=== PATIENT | male | born 1960 | race Caucasian/White ===

== ENCOUNTER → 2019-03-05 12:24 | Outpatient (BNVA) | payer OTHER, SELFPAY | PROVIDERS: Family Provider Internal Medicine; PCP Internal Medicine; Visit Provider Urology | DX: N40.1 Benign prostatic hyperplasia with lower urinary tract symptoms (principal); N13.8 Other obstructive and reflux uropathy; R97.20 Elevated prostate specific antigen [PSA] | CPT/HCPCS: 36415; 81001; 84153 ==

== ENCOUNTER → 2019-09-03 15:41 | Outpatient (BNVA) | payer OTHER, SELFPAY | PROVIDERS: Family Provider Internal Medicine; PCP Internal Medicine; Visit Provider Urology | DX: N13.8 Other obstructive and reflux uropathy (principal); N40.1 Benign prostatic hyperplasia with lower urinary tract symptoms; R97.20 Elevated prostate specific antigen [PSA]; R31.0 Gross hematuria | CPT/HCPCS: 81001; 84153 ==

== ENCOUNTER → 2019-10-09 15:49 | Outpatient (BNVA) | payer OTHER, SELFPAY | PROVIDERS: Family Provider Internal Medicine; PCP Internal Medicine; Visit Provider Urology | DX: R97.20 Elevated prostate specific antigen [PSA] (principal); N20.1 Calculus of ureter; N40.1 Benign prostatic hyperplasia with lower urinary tract symptoms; N13.8 Other obstructive and reflux uropathy | CPT/HCPCS: 81001 ==

== ENCOUNTER → 2019-12-31 08:42 | Outpatient (BNVA) | payer OTHER, SELFPAY | PROVIDERS: Family Provider Internal Medicine; PCP Internal Medicine; Visit Provider Urology | DX: R97.20 Elevated prostate specific antigen [PSA] (principal) | CPT/HCPCS: 84153 ==

== ENCOUNTER → 2020-01-07 16:07 | Outpatient (BNVA) | payer OTHER, SELFPAY | PROVIDERS: Family Provider Internal Medicine; PCP Internal Medicine; Visit Provider Urology | DX: N13.8 Other obstructive and reflux uropathy (principal); N40.1 Benign prostatic hyperplasia with lower urinary tract symptoms; R97.20 Elevated prostate specific antigen [PSA] | CPT/HCPCS: 36415; 81003; 84153 ==

== ENCOUNTER → 2020-04-27 10:12 | Outpatient (BNVA) | payer OTHER, SELFPAY | PROVIDERS: Family Provider Internal Medicine; PCP Internal Medicine; Visit Provider Urology | DX: R97.20 Elevated prostate specific antigen [PSA] (principal); N39.9 Disorder of urinary system, unspecified | CPT/HCPCS: 84153 ==

== ENCOUNTER → 2020-05-05 15:24 | Outpatient (BNVA) | payer OTHER, SELFPAY | PROVIDERS: Family Provider Internal Medicine; PCP Internal Medicine; Visit Provider Urology | DX: N13.8 Other obstructive and reflux uropathy (principal); N40.1 Benign prostatic hyperplasia with lower urinary tract symptoms; R97.20 Elevated prostate specific antigen [PSA]; N20.1 Calculus of ureter; R31.0 Gross hematuria | CPT/HCPCS: 81003 ==

== ENCOUNTER → 2020-11-05 12:13 | Outpatient (BNVA) | payer OTHER, SELFPAY | PROVIDERS: Family Provider Internal Medicine; PCP Internal Medicine; Visit Provider Nurse Practitioner Family | DX: R97.20 Elevated prostate specific antigen [PSA] (principal); N39.9 Disorder of urinary system, unspecified | CPT/HCPCS: 84153 ==

== ENCOUNTER → 2020-11-10 15:44 | Outpatient (BNVA) | payer OTHER, SELFPAY | PROVIDERS: Family Provider Internal Medicine; PCP Internal Medicine; Visit Provider Urology | DX: N40.1 Benign prostatic hyperplasia with lower urinary tract symptoms (principal); N13.8 Other obstructive and reflux uropathy; R97.20 Elevated prostate specific antigen [PSA]; F17.210 Nicotine dependence, cigarettes, uncomplicated | CPT/HCPCS: 81003 ==

== ENCOUNTER 2020-11-17 16:42 | Emergency (ER) | payer OTHER, SELFPAY ==
--- NOTE | 2020-11-17 17:16 | XRR_ITS ---
PROCEDURE INFORMATION: Exam: XR Right Finger(s) Exam date and time: 11/17/2020 5:16 PM Age: 60 years old Clinical indication: Injury or trauma; Other: Dropped metal on thumb; Finger; Injury date: 11/17/2020; Injury details: Dropped metal on right thumb; Patient HX: Laceration right thumb; Additional info: Pain TECHNIQUE: Imaging protocol: XR Right fingers. Views: Minimum 2 views. Total images: 2 COMPARISON: No relevant prior studies available. FINDINGS: Bones/joints: Nondisplaced transverse fracture terminal phalanx right thumb. 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 Soft tissues: Soft tissue swelling right thumb. XR/XR finger RT min 2V [id number] IMPRESSION: Nondisplaced transverse fracture terminal phalanx right thumb.
[2020-11-17 17:40] VITALS: BP 132/74; PULSE 109; RESP 97; TEMP 36.7; O2SAT 98; BMI 21.9
--- NOTE | 2020-11-17 19:29 | ED_ITS ---
HPI - Wound/Laceration General: Chief Complaint: Wound/Laceration Stated Complaint: Injury to R Thumb Time Seen by Provider: 11/17/20 19:29 History of Present Illness: HPI narrative: 60-year-old gentleman comes in today with complaints of right thumb injury. Patient was working on his brush mower and the blade slipped off causing it to smash his right thumb. Patient has a irregular laceration with some mild swelling to the distal thumb. Sensation is intact distally. Tendon function is normal. Review of Systems General: Reports: 10 or more systems reviewed and unremarkable except in HPI and below Musc: Reports: other (Right thumb injury) [facility] ED PFSH: Medical History (Updated 11/17/20 @ 20:13 by RENEA Cha) BPH with obstruction/lower urinary tract symptoms Elevated PSA Gross hematuria Surgical History H/O foot surgery Family History Mother , 83 Dementia Diabetes Cancer Father , 58 Cancer Social History Smoking and tobacco status: current every day smoker Alcohol intake: former Marital status: Current occupational status: employed History of recent travel: No Physical Exam Const: COMMON NORMALS: no acute distress and patient oriented x3 GENERAL APPEARANCE: cooperative HENMT: COMMON NORMALS: normocephalic and Normal external nose present HEAD & SCALP: normal to inspection and normocephalic NOSE: Normal external nose present Eye: GENERAL EYE: appearance normal, both eyes and all related structures Neck/C-Spine: COMMON NORMALS: full ROM Chest: COMMONS NORMALS: normal inspection of the chest Resp: COMMON NORMALS: normal respiratory effort EFFORT & INSPECTION: Yes able to speak in complete sentences Cardio: COMMON NORMALS: regular rate and regular rhythm RATE: regular rate RHYTHM: regular rhythm GI: COMMON NORMALS: non-tender Extremity: NARRATIVE EXTREMITY EXAM: Irregular 4 cm laceration to the distal right thumb. No nail damage. Tendon functions normal. Cap refill is normal. Neuro: COMMON NORMALS: patient oriented x3 and moves all extremities Psych: COMMON NORMALS: mental status grossly normal and cooperative Skin: COMMON NORMALS: no rashes or lesions noted GENERAL SKIN EXAM: no rashes or lesions noted Procedures Laceration Laceration 1: Site: hand Side (If applicable): right Size (cm): 4 Description: irregular Depth: simple, single layer Local Anesthetic: lidocaine 1% and with epi Amount of anesthesia used (mL): 4 Skin layer closed with: nylon Size (cm): 4-0 Number of sutures: 10 Technique: simple, interrupted Course Vital Signs: Vital signs: Vital Signs Temperature 98.1 F 11/17/20 17:40 Pulse Rate 109 H 11/17/20 17:40 Respiratory Rate 97 H 11/17/20 17:40 Blood Pressure 132/74 11/17/20 17:40 Pulse Oximetry 98 11/17/20 17:40 MDM - Wound/Laceration MDM Narrative: Medical decision making narrative: Patient comes in today with complaints of injury to the right thumb. On exam we have an irregular laceration to the distal right thumb. Cap refill and tendon function is intact. Differential diagnosis includes fracture, laceration, need for tetanus prophylaxis. X-ray noted a nondisplaced fracture of the distal phalanx of the right thumb. Wound was closed with sutures. Patient was covered with antibiotics with one dose of ceftriaxone in the emergency room. Patient was written prescriptions for Augmentin and hydrocodone. Patient was recommended to follow-up with primary care in 1 week for recheck. Wound care recommendations were reviewed with patient and spouse. Patient reported understanding and agreed to plan. Discharge Plan Discharge Patient Disposition: Home Clinical Impression: Laceration of thumb Qualifiers: Encounter type: initial encounter Damage to nail status: without damage Foreign body presence: without foreign body Laterality: right Qualified Code(s): S61.011A - Laceration without foreign body of right thumb without damage to nail, initial encounter Thumb fracture Qualifiers: Encounter type: initial encounter Fracture type: open Phalanx: distal Fracture alignment: nondisplaced Laterality: right Qualified Code(s): S62.524B - Nondisplaced fracture of distal phalanx of right thumb, initial encounter for open fracture Condition: Stable Prescriptions: New Augmentin 875-125 mg tablet 1 tab PO BID Qty: 7 RF: 0 hydrocodone-acetaminophen 5-325 mg tablet 1 tab PO Q6H PRN (Reason: pain) Qty: 7 RF: 0 No Action acetaminophen [Tylenol] 325 mg capsule 325 mg PO QID PRNRF: 0 diphenhydramine-acetaminophen [Tylenol PM Extra Strength] 25-500 mg tablet 1 tab PO Q6H PRNRF: 0 omeprazole 20 mg tablet,delayed release (DR/EC) 20 mg PO DAILY RF: 0 meloxicam 15 mg tablet 15 mg PO DAILY RF: 0 finasteride 5 mg tablet 5 mg PO DAILY Qty: 90 RF: 3 tamsulosin 0.4 mg capsule 0.4 mg PO DAILY Qty: 90 RF: 3 Discharge Orders: Discharge ED (Routine); Ordered 11/17/20 Ordered By: Erick Gutierrez Referrals: Sergo Powell DO [Primary Care Provider] - Discharge Diet: Usual diet Discharge Activity: Increase activity as tolerated Patient Instructions: Suture Care (ED), Opioid Safety Activity Restrictions/Additional Instructions: Keep wound clean and dry. Avoid use of finger for at least 1 to 2 weeks. Sutures need to come out in 7 to 10 days. Take antibiotic as directed. Use acetaminophen or ibuprofen as needed for pain. Use hydrocodone for breakthrough pain. Follow-up with primary care in 1 week for recheck. Return to the ER for new concerns. Coding Level of Care Code ED Cost Accounting Analyst for Breanne Harvey
[2020-11-17] MEDS: HYDROcodone-acetaminophen 5-325 mg Tablet 1 TAB PO (20:31)
[2020-11-17] MEDS: tetanus-dipt-pertussis 0.5 mL SDV IM (20:32)
[2020-11-17] MEDS: cefTRIAXone 1,000 MG in lidocaine 1% 2.1 ML 2.1 MG IM (20:33)
== END 2020-11-17 20:46 | disposition home or self-care (01) ==
PROVIDERS: Emergency Provider Nurse Practitioner Family; PCP Internal Medicine
DX: S62.524B Nondisplaced fracture of distal phalanx of right thumb, initial encounter for open fracture (principal); S61.011A Laceration without foreign body of right thumb without damage to nail, initial encounter; F17.210 Nicotine dependence, cigarettes, uncomplicated; W20.8XXA Other cause of strike by thrown, projected or falling object, initial encounter; Z23 Encounter for immunization
CPT/HCPCS: 12002; 73140; 90471; 90715; 96372; 99283; J0696

== ENCOUNTER → 2021-05-03 09:13 | Outpatient (BNVA) | payer OTHER, SELFPAY | PROVIDERS: PCP Internal Medicine; Visit Provider Nurse Practitioner Family | DX: R97.20 Elevated prostate specific antigen [PSA] (principal); N39.9 Disorder of urinary system, unspecified | CPT/HCPCS: 84153 ==

== ENCOUNTER → 2021-05-11 16:00 | Outpatient (BNVA) | payer OTHER, SELFPAY | PROVIDERS: PCP Internal Medicine; Visit Provider Urology | DX: N40.1 Benign prostatic hyperplasia with lower urinary tract symptoms (principal); N13.8 Other obstructive and reflux uropathy; R97.20 Elevated prostate specific antigen [PSA]; F17.210 Nicotine dependence, cigarettes, uncomplicated | CPT/HCPCS: 81003 ==

== ENCOUNTER 2021-06-03 14:29 | Emergency (ER) | payer OTHER, SELFPAY ==
[2021-06-03 15:13] VITALS: BP 127/78; PULSE 78; RESP 15; TEMP 37; O2SAT 96; BMI 22.5
[2021-06-03 15:41] VITALS: BP 144/76; PULSE 72; RESP 16; O2SAT 96
--- NOTE | 2021-06-03 15:44 | XRR_ITS ---
PROCEDURE INFORMATION: Exam: XR Left Hip Exam date and time: 06/03/2021 4:03 PM Age: 60 years old Clinical indication: Injury or trauma; Fall; Blunt trauma (contusions or hematomas); Injury date: Today; Injury details: Patient is a 60-year-old male comes to the ED with left lower extremity pain after injury. Couple hours prior to arrival patient says he tripped and fell onto he backhoe. He says that his left hip and upper thigh hit the metal backhoe. ; Additional info: Fall with thigh and hip pain TECHNIQUE: Imaging protocol: XR Left hip. Views: 2 or 3 views hip with pelvis when performed. COMPARISON: [place]dom[place] o [id number] 08/30/2018 9:03 AM FINDINGS: Bones/joints: No acute fracture. 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 Soft tissues: Unremarkable. XR/XR hip LT 2-3V wo/w pel* [id number] IMPRESSION: No acute findings.
--- NOTE | 2021-06-03 15:44 | XRR_ITS ---
PROCEDURE INFORMATION: Exam: XR Left Femur Exam date and time: 06/03/2021 4:03 PM Age: 60 years old Clinical indication: Injury or trauma; Fall; Blunt trauma; Thigh or upper leg; Injury date: Today; Injury details: Patient is a 60-year-old male comes to the ED with left lower extremity pain after injury. Couple hours prior to arrival patient says he tripped and fell onto he backhoe. He says that his left hip and upper thigh hit the metal backhoe. ; Additional info: Fall injury with left upper thigh pain TECHNIQUE: Imaging protocol: XR Left femur. Views: 2 views. COMPARISON: MR prostate 09/12/2019 7:11 PM FINDINGS: Bones/joints: No acute fracture. Soft tissues: Unremarkable. XR/XR femur LT min 2V* [id number] IMPRESSION: No acute findings.
--- NOTE | 2021-06-03 15:48 | ED_ITS ---
HPI - Fall General: Chief Complaint: Fall Stated Complaint: fell Time Seen by Provider: 06/03/21 15:33 History of Present Illness: Patient is a 60-year-old male comes to the ED with left lower extremity pain after injury. Couple hours prior to arrival patient says he tripped and fell onto he backhoe. He says that his left hip and upper thigh hit the metal backhoe. Denies any head trauma or loss of consciousness. Patient is able to ambulate on left leg but does endorse some soreness. He rates his pain as mild and says it is a 2 out of 10. He can feel swollen tender spot on the left lateral upper thigh/hip region. Associated symptoms-after fall: Denies abdominal pain, chest pain, headache(s), hematuria or neck pain Review of Systems Const: Denies: fever(s), chills or fatigue Eyes: Denies: change in vision or eye discomfort ENMT: Denies: throat pain, odynophagia, nasal discharge or nasal congestion Card: Denies: chest pain, palpitations, edema, swelling of feet/ankles, dyspnea on exertion or orthopnea Resp: Denies: dyspnea, productive cough or non-productive cough GI: Denies: abdominal pain, nausea, vomiting, diarrhea, constipation or hematochezia : Denies: flank pain, difficulty urinating, dysuria or hematuria Musc: Reports: extremity pain (Left upper thigh and left hip.); Denies: neck pain, back pain or extremity swelling Skin/Breast: Denies: rash or new lesions Neuro: Denies: headache(s), numbness in extremities or weakness in extremities PFS ED PFSH: Medical History BPH with obstruction/lower urinary tract symptoms Elevated PSA Gross hematuria Surgical History H/O foot surgery Family History Mother , 83 Dementia Diabetes Cancer Father , 58 Cancer Social History Smoking and tobacco status: current every day smoker Alcohol intake: never Marital status: Current occupational status: employed History of recent travel: No Physical Exam Const: COMMON NORMALS: no acute distress, patient oriented x3, healthy appearing and alert GENERAL APPEARANCE: cooperative and comfortable HENMT: COMMON NORMALS: normocephalic HEAD & SCALP: normocephalic MOUTH: Normal oral and palatal mucosa present THROAT: posterior oropharynx normal and uvula midline Neck/C-Spine: COMMON NORMALS: supple GENERAL: Yes normal visual inspection Resp: COMMON NORMALS: normal respiratory effort, No retractions, No use of accessory muscles and clear to auscultation bilaterally AUSCULTATION: clear to auscultation bilaterally Cardio: COMMON NORMALS: regular rate, regular rhythm, S1 normal heart sound present, S2 normal heart sound present, No gallops present (Cardio), No clicks present (Cardio), No murmurs present (Cardio) and Peripheral pulses 2+ throughout RATE: regular rate RHYTHM: regular rhythm HEART SOUNDS: S1 normal heart sound present and S2 normal heart sound present PERIPHERAL PULSES: Peripheral pulses 2+ throughout GI: COMMON NORMALS: Normal to inspection, nondistended, normoactive bowel sounds present, Soft to palpation, non-tender and no masses PALPATION: Yes Soft to palpation : COMMON NORMALS: Yes no CVA tenderness BLADDER/KIDNEY EXAM: Yes no CVA tenderness Back/Pelvis: COMMON NORMALS: no CVA tenderness Extremity: NARRATIVE EXTREMITY EXAM: Left leg?no visible deformity seen. No leg shortening or external rotation noted. He has a palpable tender spot in the left lateral upper thigh. Full range of motion. Neurovascular tact. GENERAL: Yes normal exam except as noted Neuro: COMMON NORMALS: patient oriented x3 and moves all extremities SENSORIUM/ORIENTATION: Yes alert Skin: GENERAL SKIN EXAM: dry skin Course Vital Signs: Vital signs: Vital Signs Temperature 98.6 F 06/03/21 15:13 Pulse Rate 64 06/03/21 16:38 Respiratory Rate 16 06/03/21 16:38 Blood Pressure 125/82 06/03/21 16:38 Pulse Oximetry 96 06/03/21 16:38 MDM - Fall Medical Decision Making Patient is a 60-year-old male comes to the ED with left upper thigh/hip pain after fall. Denies any head trauma or loss of consciousness. Patient is ambulatory with minimal pain on left leg. No visible deformity and neurovascular tact. X-ray of left femur and left hip show no acute fractures or findings. Patient was diagnosed with a contusion of left thigh and discharged home. Told to follow-up with his PCP in the next 7 to 10 days for reevaluation. Return to ED precautions given. Patient understood and agreed with plan. Lab Data Radiology Impressions Femur X-Ray 06/03/21 15:44 IMPRESSION: No acute findings. Hip/Pelvis X-Ray 06/03/21 15:44 IMPRESSION: No acute findings. Discharge Plan Discharge Patient Disposition: Home Clinical Impression: Contusion of left thigh Qualifiers: Encounter type: initial encounter Qualified Code(s): S70.12XA - Contusion of left thigh, initial encounter Condition: Stable Prescriptions: No Action acetaminophen [Tylenol] 325 mg capsule 325 mg PO QID PRN0RF diphenhydramine-acetaminophen [Tylenol PM Extra Strength] 25-500 mg tablet 1 tab PO Q6H PRN0RF meloxicam 15 mg tablet 15 mg PO DAILY 0RF finasteride 5 mg tablet 5 mg PO DAILY Qty: 90 3RF tamsulosin 0.4 mg capsule 0.4 mg PO DAILY Qty: 90 3RF Discharge Orders: Discharge ED (Routine); Ordered 06/03/21 Ordered By: Tk John Referrals: Sergo Powell DO [Primary Care Provider] - Discharge Diet: Regular Discharge Activity: Increase activity as tolerated Patient Instructions: Contusion in Adults (ED) Activity Restrictions/Additional Instructions: Follow-up with medical provider as directed in the next 5 to 7 days for reevaluation. Take [id number] Tylenol or Motrin for any pain. Return to the ER or your medical provider if condition worsens. Please read and understand discharge instructions. Thank you for choosing [facility] for your healthcare needs today. Please realize this is an emergency room and that we are providing you with a medical screening exam and this may not be complete and all inclusive of all the testing and or work up that you may need to determine your ailment or severity of your illness. It is very important that you follow up as instructed or that you return to the Emergency Department should you have concerns or if your condition changes or worsens in any way. Coding Level of Care Code ED Alternative Energy Engineer for Breanne Harvey Exam Comprehensive
[2021-06-03 16:38] VITALS: BP 125/82; PULSE 64; RESP 16; O2SAT 96
== END 2021-06-03 16:40 | disposition home or self-care (01) ==
PROVIDERS: Emergency Provider Physician Assistant; PCP Internal Medicine
DX: S70.12XA Contusion of left thigh, initial encounter (principal); W18.30XA Fall on same level, unspecified, initial encounter; F17.210 Nicotine dependence, cigarettes, uncomplicated
CPT/HCPCS: 73502; 73552; 99282

== ENCOUNTER 2021-11-12 15:13 | Outpatient (CLI) | payer OTHER, SELFPAY ==
[2021-11-12 16:56] LABS: Prostate Specific AG Urology 8.17 ng/mL (0-4)
== END 2021-11-12 15:14 | disposition home or self-care (01) ==
PROVIDERS: PCP Internal Medicine; Visit Provider Urology
DX: R97.20 Elevated prostate specific antigen [PSA] (principal)
CPT/HCPCS: 84153

== ENCOUNTER → 2021-11-17 14:04 | Outpatient (BNVA) | payer OTHER, SELFPAY | PROVIDERS: PCP Internal Medicine; Visit Provider Urology | DX: N40.1 Benign prostatic hyperplasia with lower urinary tract symptoms (principal); N13.8 Other obstructive and reflux uropathy; R97.20 Elevated prostate specific antigen [PSA] | CPT/HCPCS: 81003 ==

== ENCOUNTER 2022-01-06 06:12 | Emergency (ER) | payer OTHER, SELFPAY ==
[2022-01-06 06:17] VITALS: BP 153/68; PULSE 77; RESP 17; TEMP 37.3; O2SAT 95; BMI 20.6
--- NOTE | 2022-01-06 06:20 | ED_ITS ---
HPI - Abdominal Pain General: Chief Complaint: Abdominal Pain Stated Complaint: abd pain Time Seen by Provider: 01/06/22 06:14 Source: patient Mode of arrival: ambulatory History of Present Illness: 61-year-old male presents emergency room complaining of suprapubic and left lower quadrant abdominal pain. Said nausea no vomiting no diarrhea no dysuria urgency, he has noted he said to go to the bathroom more often. Patient is not diabetic no previous abdominal surgeries. History of mild BPH. He denies any hematuria. Denies any hematochezia melena hematemesis coffee-ground emesis no fever. Although here he has a low-grade temp of 99 1 on arrival. He has not noticed anything that makes the abdominal pain better or worse. No previous history of diverticulitis. MD elicited complaint: abdominal pain Pertinent past history: none Onset (ago): week(s) (1) Pain Consistency: constant Location: None Severity: mild Quality: cramping Radiation: none Migration to: no migration Exacerbating factors: nothing Relieving factors: nothing Associated Symptoms: Reports GI cramping, nausea and poor appetite; Denies anorexia, belching, bloating, change in bowel habits, change in stool character, chills, coffee ground emesis, constipation, diarrhea, dyspepsia, dysuria, excessive flatus, fever(s), heartburn, hematochezia, hematuria, hematemesis, fecal incontinence, loose stools, melena, syncope and vomiting Review of Systems Const: Denies: fever(s), chills, fatigue or malaise ENMT: Denies: throat pain, ear or mastoid pain, nasal discharge or nasal congestion Card: Denies: chest pain, palpitations, irregular heart rhythm or syncope Resp: Denies: dyspnea, productive cough or non-productive cough GI: Reports: nausea and GI cramping; Denies: vomiting, hematemesis, coffee ground emesis, heartburn, diarrhea, constipation, bloating, belching, excessive flatus, fecal incontinence, change in bowel habits, change in stool character, hematochezia or melena : Reports: urinary frequency; Denies: flank pain, difficulty urinating, dysuria, urinary urgency or hematuria Skin/Breast: Denies: rash or pruritus PFSH ED PFSH: Medical History BPH with obstruction/lower urinary tract symptoms Elevated PSA Gross hematuria Surgical History H/O foot surgery Family History Mother , 83 Dementia Diabetes Cancer Father , 58 Cancer Social History Smoking and tobacco status: current every day smoker Alcohol intake: never Marital status: Current occupational status: employed History of recent travel: No Physical Exam Const: GENERAL APPEARANCE: cooperative and comfortable ORIENTATION/CONSCIOUSNESS: Yes awake, Yes oriented to person, Yes oriented to place and Yes oriented to time HENMT: COMMON NORMALS: normocephalic, atraumatic and hearing grossly normal bilaterally HEAD & SCALP: normocephalic and atraumatic Resp: COMMON NORMALS: normal respiratory effort, No retractions, No use of accessory muscles and clear to auscultation bilaterally AUSCULTATION: clear to auscultation bilaterally Cardio: COMMON NORMALS: regular rate, regular rhythm and No murmurs present (Cardio) RATE: regular rate RHYTHM: regular rhythm GI: COMMON NORMALS: Soft to palpation and No hepatosplenomegaly present AUSCULTATION: Yes normoactive bowel sounds PALPATION: Yes Soft to palpation, No Tenderness to palpation present (GI), No Guarding due to palpation present (GI) and Yes No hepatosplenomegaly present Extremity: COMMON NORMALS: normal to inspection, capillary refill normal, no clubbing, cyanosis or edema, no calf tenderness and no pedal edema Neuro: SENSORIUM/ORIENTATION: Yes oriented to person, Yes oriented to place and Yes oriented to time Skin: COMMON NORMALS: no rashes or lesions noted GENERAL SKIN EXAM: no rashes or lesions noted Course Vital Signs: Vital signs: Vital Signs Temperature 99.1 F 01/06/22 06:17 Pulse Rate 77 01/06/22 06:17 Respiratory Rate 17 01/06/22 06:17 Blood Pressure 153/68 01/06/22 06:17 Pulse Oximetry 95 01/06/22 06:17 Oxygen Delivery Me thod 01/06/22 06:17 MDM - Abdominal Pain Medical Decision Making Not a significant amount residual on bladder scan. Patient states his symptoms have improved most of his tenderness is in the left lower quadrant he has no sign of hernia on examination no symptoms. Suspect he does have diverticulitis started on metronidazole and Cipro Zofran as needed if he develops any nausea GlucoDock for 2 days and advance as tolerated Medical Records I reviewed the patient's medical records. Lab Data I reviewed the patient's lab results. 01/06/22 06:30 01/06/22 06:30 Labs/Radiology: Laboratory Results WBC 10.9 10^3/uL (4.0-10.0) H 01/06/22 06:30 RBC 5.09 10^6/uL (4.1-5.3) 01/06/22 06:30 Hgb 16.1 g/dL (11.7-16.6) 01/06/22 06:30 Hct 48.4 % (42.0-52.0) 01/06/22 06:30 MCV 95.1 fl (80-94) H 01/06/22 06:30 MCH 31.6 pg (28.0-34.0) 01/06/22 06:30 MCHC 33.3 g/dL (30.0-36.0) 01/06/22 06:30 RDW 12.5 % (12.1-15.1) 01/06/22 06:30 Plt Count 204 10^3/cmm (130-400) 01/06/22 06:30 MPV 8.8 fL (7.4-10.4) 01/06/22 06:30 Neut % (Auto) 80.0 % 01/06/22 06:30 Lymph % (Auto) 9.5 % 01/06/22 06:30 Quay % (Auto) 8.2 % 01/06/22 06:30 Eos % (Auto) 1.6 % 01/06/22 06:30 Baso % (Auto) 0.3 % 01/06/22 06:30 Neut # (Auto) 8.75 10^3/uL (1.8-7.7) H 01/06/22 06:30 Lymph # (Auto) 1.0 10^3/uL (0.8-4.8) 01/06/22 06:30 Quay # (Auto) 0.9 10^3/uL (0.2-0.9) 01/06/22 06:30 Eos # (Auto) 0.2 10^3/uL (0.0-0.8) 01/06/22 06:30 Baso # (Auto) 0.0 10^3/uL (0.0-0.1) 01/06/22 06:30 Nucleated RBC % (auto) 0 % 01/06/22 06:30 Nucleated RBCs # 0.0 /100WBC 01/06/22 06:30 Sodium 136 mmol/L (136-145) 01/06/22 06:30 Potassium 4.1 mmol/L (3.5-5.1) 01/06/22 06:30 Chloride 100 mmol/L (98-107) 01/06/22 06:30 Carbon Dioxide 27 mmol/L (22-29) 01/06/22 06:30 Anion Gap 13.1 (5-19) 01/06/22 06:30 BUN 12 mg/dL (8-23) 01/06/22 06:30 Creatinine 0.9 mg/dL (0.7-1.2) 01/06/22 06:30 GFR Calculation 85.2 mL/min (90-130) L 01/06/22 06:30 Glucose 118 mg/dL (65-115) H 01/06/22 06:30 Calculated Osmolality 283 mOsm/kg (285-295) L 01/06/22 06:30 Calcium 8.8 mg/dL (8.5-10.5) 01/06/22 06:30 Magnesium 1.9 mg/dL (1.7-2.3) 01/06/22 06:30 Total Bilirubin 1.2 mg/dL (0.15-1.2) 01/06/22 06:30 AST 15 U/L (0-40) 01/06/22 06:30 ALT 16 U/L (0-41) 01/06/22 06:30 Alkaline Phosphatase 137 U/L (40-130) H 01/06/22 06:30 Total Protein 6.7 g/dL (6.6-8.7) 01/06/22 06:30 Albumin 3.5 g/dL (3.5-5.2) 01/06/22 06:30 Globulin 3.2 g/dL (1.3-4.6) 01/06/22 06:30 Lipase 13 U/L (13-60) 01/06/22 06:30 Urine Color Yellow (Yellow) 01/06/22 06:45 Urine Appearance Clear (CLEAR) 01/06/22 06:45 Urine pH 6 (5-7) 01/06/22 06:45 Ur Specific [place] 1.005 (1.005-1.030) 01/06/22 06:45 Urine Protein Neg (Negative) 01/06/22 06:45 Urine Glucose (UA) Norm (Normal) 01/06/22 06:45 Urine Ketones 1+ (Negative) H 01/06/22 06:45 Urine Blood Neg (Negative) 01/06/22 06:45 Urine Nitrate Negative (Negative) 01/06/22 06:45 Urine Bilirubin Neg (Negative) 01/06/22 06:45 Urine Urobilinogen Norm mg/dL (Negative) 01/06/22 06:45 Ur Leukocyte Esterase Negative (Negative) 01/06/22 06:45 Discharge Plan Discharge Patient Disposition: Home Clinical Impression: Diverticulitis Condition: Stable Prescriptions: New Cipro 500 mg tablet 500 mg PO BID Qty: 14 0RF metronidazole 500 mg tablet 500 mg PO BID 7 Days Qty: 14 0RF ondansetron HCl 4 mg tablet 4 mg PO Q6H PRN (Reason: nausea and vomiting) Qty: 20 0RF No Action acetaminophen [Tylenol] 325 mg capsule 325 mg PO QID PRN (Reason: Pain) diphenhydramine-acetaminophen [Tylenol PM Extra Strength] 25-500 mg tablet 1 tab PO Q6H PRN (Reason: Pain) meloxicam 15 mg tablet 15 mg PO DAILY finasteride 5 mg tablet See Rx Instructions .ROUTE .COMPLEX Qty: 90 3RF Dose Instruction: TAKE 1 TABLET BY MOUTH EVERY DAY FOR BPH WITH OBSTRUCTION Rx Instructions: TAKE 1 TABLET BY MOUTH EVERY DAY FOR BPH WITH OBSTRUCTION tamsulosin 0.4 mg capsule See Rx Instructions .ROUTE .COMPLEX Qty: 90 3RF Dose Instruction: TAKE 1 CAPSULE BY MOUTH EVERY DAY Rx Instructions: TAKE 1 CAPSULE BY MOUTH EVERY DAY Discharge Orders: Discharge ED (Routine); Ordered 01/06/22 Ordered By: Antonio Avila Referrals: Sergo Powell DO [Primary Care Provider] - Discharge Diet: Clear Liquid Discharge Activity: Resume usual activity Patient Instructions: Opioid Safety, Pain Management Coding Level of Care Code ED Profile Grinder Technician for Chg Fwd Exam Detailed
[2022-01-06 06:48] LABS: Basophils % 0.3 %; Eosinophils # 0.2 10^3/uL (0.0-0.8); Eosinophils % 1.6 %; Hematocrit 48.4 % (42.0-52.0); Hemoglobin 16.1 g/dL (11.7-16.6); Lymphocytes % 9.5 %; Mean Corpuscular HGB Conc 33.3 g/dL (30.0-36.0); Mean Corpuscular Hemoglobin 31.6 pg (28.0-34.0); Mean Corpuscular Volume 95.1 fl (80-94); Mean Platelet Volume 8.8 fL (7.4-10.4); Monocytes # 0.9 10^3/uL (0.2-0.9); Monocytes % 8.2 %; Neutrophils # 8.75 10^3/uL (1.8-7.7); Nucleated Red Blood Cells % 0 %; Platelet Count 204 10^3/cmm (130-400); Red Blood Count 5.09 10^6/uL (4.1-5.3); Red Cell Distribution Width 12.5 % (12.1-15.1); White Blood Count 10.9 10^3/uL (4.0-10.0)
[2022-01-06 07:00] LABS: Add Urine Microscopic? NO; Charge for UA Resulting for Rev
[2022-01-06 07:04] LABS: Alanine Aminotransferase 16 U/L (0-41); Albumin Level 3.5 g/dL (3.5-5.2); Alkaline Phosphatase 137 U/L (40-130); Anion Gap 13.1 (5-19); Aspartate Amino Transferase 15 U/L (0-40); Blood Urea Nitrogen 12 mg/dL (8-23); Calcium 8.8 mg/dL (8.5-10.5); Carbon Dioxide 27 mmol/L (22-29); Chloride 100 mmol/L (98-107); Globulin 3.2 g/dL (1.3-4.6); Glomerular Filtration Rate 85.2 mL/min (90-130); Glucose 118 mg/dL (65-115); Lipase 13 U/L (13-60); Magnesium 1.9 mg/dL (1.7-2.3); Osmolality Calculated 283 mOsm/kg (285-295); Potassium 4.1 mmol/L (3.5-5.1); Sodium 136 mmol/L (136-145); Total Bilirubin 1.2 mg/dL (0.15-1.2); Total Protein 6.7 g/dL (6.6-8.7)
[2022-01-06 07:15] LABS: Bilirubin Urine Neg (Negative); Blood Urine Neg (Negative); Glucose Urine UA Norm (Normal); Ketones Urine 1+ (Negative); Leukocyte Esterase Urine Negative (Negative); Nitrate Urine Negative (Negative); Protein Urine Neg (Negative); Specific Gravity, Urine 1.005 (1.005-1.030); Urine Appearance Clear (CLEAR); Urine Color Yellow (Yellow); Urobilinogen Urine Norm (Negative); pH Urine 6 (5-7)
[2022-01-06 07:30] VITALS: BP 140/77; PULSE 71; RESP 16; O2SAT 96
== END 2022-01-06 07:52 | disposition home or self-care (01) ==
PROVIDERS: Emergency Provider Family Medicine; PCP Internal Medicine
DX: K57.92 Diverticulitis of intestine, part unspecified, without perforation or abscess without bleeding (principal); F17.210 Nicotine dependence, cigarettes, uncomplicated
CPT/HCPCS: 51798; 80053; 81003; 83690; 83735; 85025; 99283

== ENCOUNTER 2022-05-16 15:40 | Outpatient (CLI) | payer OTHER, SELFPAY ==
[2022-05-16 17:30] LABS: Prostate Specific AG Urology 9.45 ng/mL (0-4)
== END 2022-05-16 15:41 | disposition home or self-care (01) ==
LOC: LAB 15:44
PROVIDERS: PCP Internal Medicine; Visit Provider Urology
DX: R97.20 Elevated prostate specific antigen [PSA] (principal)
CPT/HCPCS: 36415; 84153

== ENCOUNTER → 2022-05-19 15:06 | Outpatient (BNVA) | payer OTHER, SELFPAY | PROVIDERS: PCP Internal Medicine; Visit Provider Urology | DX: N40.1 Benign prostatic hyperplasia with lower urinary tract symptoms (principal); N13.8 Other obstructive and reflux uropathy | CPT/HCPCS: 81003 ==

== ENCOUNTER 2024-03-10 17:58 | Emergency (ER) | payer MEDICARE, OTHER, SELFPAY ==
[2024-03-10] VITALS (7 sets, daily range): BP systolic 121–153; BP diastolic 59–84; PULSE 81–91; RESP 16–22; TEMP 36.8; O2SAT 95–98; BMI 21.9
[2024-03-10] MEDS: lidocaine 2% Urojet 20 mL 10 ML TOPICAL (20:37)
--- NOTE | 2024-03-10 21:41 | PC.NURSE ---
ROUNDED ON PT AT 2142 AND EMPTIED 1 L OF URINE FROM [facility] BAG
[2024-03-10 21:53] LABS: Bilirubin Urine Negative (Negative); Blood Urine 3+ (Negative); Glucose Urine UA Negative (Normal); Ketones Urine Trace (Negative); Leukocyte Esterase Urine 1+ (Negative); Nitrate Urine Positive (Negative); Protein Urine Trace (Negative); Specific Gravity, Urine 1.011 (1.005-1.030); Urine Appearance Clear (CLEAR); Urine Color Dark Yellow (Yellow)
[2024-03-10 21:56] LABS: Add Urine Microscopic? YES; Bacteria Urine 1+ /hpf; Hyaline Casts Urine 0-4 /lpf; RBC Urine 51-100 /hpf (0-2); Squamous Epithelial Cell Urine 0-5 /hpf (0-5); WBC Urine 21-50 /hpf (0-5)
[2024-03-10 22:03] LABS: Add Urine Culture? Yes
[2024-03-10] MEDS: cefTRIAXone 2,000 mg SDV 2000 MG IVP (22:23)
--- NOTE | 2024-03-10 22:33 | W.ED.ABDPA2 ---
HPI - Abdominal Pain General: Chief Complaint: Abdominal Pain Stated Complaint: UTI\ABD Pain Time Seen by Provider: 03/10/24 19:24 Source: patient and family Mode of arrival: ambulatory Limitations: no limitations History of Present Illness: Patient ports severe pain, inability to pee, pain is in the lower abdomen and pelvis. Started this afternoon being unable to urinate and has gotten worse into the night. Initial part of the visit but did not tell me about any UTI history I did discuss that this could be a possibility. They did not mention they are currently under treatment. At the end of visit during discharge counseling it was revealed that he is already been diagnosed with UTI and he is on Cipro from the urgent care this morning. Patient has a history of BPH and is treated with finasteride and Flomax. Has urologist in [place]. MD elicited complaint: abdominal pain Related Data Home Medications Medication Instructions Recorded Confirmed acetaminophen 325 mg capsule 325 mg PO QID PRN Pain 01/07/20 05/19/22 (Tylenol) diphenhydramine 25 1 tab PO Q6H PRN Pain 01/07/20 05/19/22 mg-acetaminophen 500 mg tablet (Tylenol PM Extra Strength) meloxicam 15 mg tablet 15 mg PO DAILY 11/10/20 05/19/22 Previous Rx's Medication Instructions Recorded tamsulosin 0.4 mg capsule See Rx Instructions .Route 08/05/21 .COMPLEX #90 caps finasteride 5 mg tablet See Rx Instructions .Route 11/16/21 .COMPLEX #90 tabs Allergies Allergy/AdvReac Type Severity Reaction Status Date / Time No Known Allergies Allergy Unverified 01/06/22 06:24 Review of Systems General: Reports: 10 or more systems reviewed and unremarkable except in HPI and below PFSH ED PFSH: Medical History (Updated 03/10/24 @ 22:37 by Kenan Mcclain MD) Gross hematuria BPH with obstruction/lower urinary tract symptoms Elevated PSA Family History Mother , 83 Dementia Diabetes Cancer Father , 58 Cancer Social History Smoking and tobacco/nicotine status: current every day tobacco/nicotine user Alcohol intake: never Substance/Drug Use: never Marital status: Current occupational status: employed Physical Exam Const: COMMON NORMALS: no acute distress, average body habitus, patient oriented x3, healthy appearing, alert and well nourished GENERAL APPEARANCE: well kempt and well developed HENMT: COMMON NORMALS: normocephalic, atraumatic, external ears normal and moist oral mucous membranes HEAD & SCALP: normocephalic and atraumatic EXTERNAL EAR: Yes external ears normal Eye: COMMON NORMALS: Equal, round and reactive pupils present, EOMs intact bilaterally and conjunctivae normal CONJUNCTIVA: Yes conjunctivae normal PUPIL: Yes Equal, round and reactive pupils present Neck/C-Spine: COMMON NORMALS: full ROM, no lymphadenopathy and supple Chest: CHEST: Yes Symmetrical chest wall rise and No Surgical scars present (Chest) Resp: COMMON NORMALS: normal respiratory effort, No retractions, No use of accessory muscles and clear to auscultation bilaterally AUSCULTATION: clear to auscultation bilaterally Cardio: COMMON NORMALS: regular rate, regular rhythm, S1 normal heart sound present, S2 normal heart sound present, No gallops present (Cardio), No clicks present (Cardio), No murmurs present (Cardio) and No rub (Cardio) RATE: regular rate RHYTHM: regular rhythm HEART SOUNDS: S1 normal heart sound present, S2 normal heart sound present and no murmurs PERIPHERAL PULSES: other (Radial pulses 2+ and symmetric) GI: COMMON NORMALS: Soft to palpation and no masses INSPECTION: No abdominal distension PALPATION: Yes Soft to palpation, Yes Tenderness to palpation present (GI) (Suprapubic with a distended bladder), Yes Guarding due to palpation present (GI) (Suprapubic) and No Rebound tenderness present : COMMON NORMALS: Yes no CVA tenderness and Yes normal external exam BLADDER/KIDNEY EXAM: Yes no CVA tenderness PENIS: normal penis Back/Pelvis: COMMON NORMALS: no CVA tenderness Extremity: COMMON NORMALS: normal to inspection, full ROM, capillary refill normal and no clubbing, cyanosis or edema Neuro: COMMON NORMALS: patient oriented x3 SENSORIUM/ORIENTATION: Yes alert Psych: APPEARANCE: Yes well kempt Skin: COMMON NORMALS: no rashes or lesions noted, no wounds, turgor normal and no jaundice GENERAL SKIN EXAM: no rashes or lesions noted and turgor normal Course Vital Signs: Vital signs: Vital Signs Temperature 98.3 F 03/10/24 18:04 Pulse Rate 85 03/10/24 22:30 Respiratory Rate 16 03/10/24 22:30 Blood Pressure 151/71 03/10/24 22:30 Pulse Oximetry 95 03/10/24 22:30 Oxygen Delivery Me thod Room Air 03/10/24 22:30 MDM - Abdominal Pain Medical Decision Making Sees 3-year-old male comes in with acute urinary tension. Drink several bottles of water but still unable to pee so comes the ER with severe suprapubic abdominal pain. Patient does have history of BPH. Examining patient is not send abdomen was unremarkable, Uro-Jet ordered, Gary ordered. Nurse able to place Gary and had initial passage of an immediate 800 cc however this progressed to 1750 cc very shortly. After learning that patient already has a diagnosis of UTI, confirmed with urine there is a UTI. In fact telling him the result is when I was able to learn he was already being treated with Cipro. He had 2 tablets. Advised him to continue that course and we will give a dose of Rocephin tonight. Will retain Gary for 5 days with leg bag. Return here or go to primary care or urology to have it removed. Differential Diagnosis Likely abdominal pain and constipation Medical Records I reviewed the patient's medical records. Lab Data I reviewed the patient's lab results. Labs/Radiology: Laboratory Results Urine Color Dark yellow (Yellow) A 03/10/24 20: Urine Appearance Clear (CLEAR) 03/10/24 20:28 Urine pH 6.0 (5-7) 03/10/24 20:28 Ur Specific [place] 1.011 (1.005-1.030) 03/10/24 20:28 Urine Protein Trace (Negative) A 03/10/24 20:28 Urine Glucose (UA) Negative (Normal) 03/10/24 20: Urine Ketones Trace (Negative) 03/10/24 20: Urine Blood 3+ (Negative) A 03/10/24 20: Urine Nitrate Positive (Negative) A 03/10/24 20: Urine Bilirubin Negative (Negative) 03/10/24 20: Urine Urobilinogen 1.0 mg/dL (Negative) 03/10/24 20: Ur Leukocyte Esterase 1+ (Negative) A 03/10/24 20: Urine RBC 51-100 /hpf (0-2) H 03/10/24 20:28 Urine WBC 21-50 /hpf (0-5) H 03/10/24 20:28 Ur Squamous Epith Cells 0-5 /hpf (0-5) 03/10/24 20:28 Amorphous Sediment Not Reportable 03/10/24 20:28 Urine Bacteria 1+ /hpf (NONE) H 03/10/24 20:28 Hyaline Casts 0-4 /lpf H 03/10/24 20:28 No radiology studies performed this visit Discharge Plan Discharge Patient Disposition: Home Clinical Impression: Acute urinary retention, BPH with obstruction/lower urinary tract symptoms Acute cystitis Qualifiers: Hematuria presence: with hematuria Qualified Code(s): N30.01 - Acute cystitis with hematuria Condition: Stable Prescriptions: No Action acetaminophen [Tylenol] 325 mg capsule 325 mg PO QID PRN (Reason: Pain) diphenhydramine-acetaminophen [Tylenol PM Extra Strength] 25-500 mg tablet 1 tab PO Q6H PRN (Reason: Pain) meloxicam 15 mg tablet 15 mg PO DAILY finasteride 5 mg tablet See Rx Instructions .ROUTE .COMPLEX Qty: 90 3RF Dose Instruction: TAKE 1 TABLET BY MOUTH EVERY DAY FOR BPH WITH OBSTRUCTION Rx Instructions: TAKE 1 TABLET BY MOUTH EVERY DAY FOR BPH WITH OBSTRUCTION tamsulosin 0.4 mg capsule See Rx Instructions .ROUTE .COMPLEX Qty: 90 3RF Dose Instruction: TAKE 1 CAPSULE BY MOUTH EVERY DAY Rx Instructions: TAKE 1 CAPSULE BY MOUTH EVERY DAY Discharge Orders: Discharge ED (Routine); Ordered 03/10/24 Ordered By: Kenan Mcclain Referrals: Cole Borrero MD [Primary Care Provider] - Discharge Diet: Usual diet Discharge Activity: Resume usual activity Patient Instructions: Gary Catheter Care, Gary Catheter Removal (DC) Activity Restrictions/Additional Instructions: Follow-up with your PCP or urologist in approximately 5 days for catheter removal. Can also return here if need be. Coding Level of Care Code ED [employer] for Breanne Harvey
== END 2024-03-10 23:20 | disposition home or self-care (01) ==
PROVIDERS: Emergency Provider Emergency Medicine; PCP Family Medicine
DX: N30.01 Acute cystitis with hematuria (principal); R33.9 Retention of urine, unspecified; D29.1 Benign neoplasm of prostate; Z72.0 Tobacco use
CPT/HCPCS: 51702; 81001; 87086; 96374; 99284; J0696